=== PATIENT | male | born 1995 | race Two or more races ===

== ENCOUNTER 2018-02-12 18:29 | Emergency (ER) | payer OTHER ==
[~2018-02-12] VITALS: Ht 177.8 cm; Wt 75.0 kg
[2018-02-12 20:46] VITALS: BP 120/70
== END 2018-02-12 21:52 | disposition home or self-care (01) ==
LOC: ED 21:30
DX: S70.01XA Contusion of right hip, initial encounter (principal); S90.01XA Contusion of right ankle, initial encounter; S50.02XA Contusion of left elbow, initial encounter; S90.02XA Contusion of left ankle, initial encounter; X58.XXXA Exposure to other specified factors, initial encounter; Y93.89 Activity, other specified; Y99.0 Civilian activity done for income or pay; Y92.69 Other specified industrial and construction area as the place of occurrence of the external cause
CPT/HCPCS: 29505; 99284